=== PATIENT | male | born 1955 | race Caucasian/White ===

== ENCOUNTER 2017-10-03 19:02 | Emergency (ER) | payer MEDICAID ==
[~2017-10-03] VITALS: Ht 177.8 cm; Wt 113.4 kg
[~2017-10-03 19:02] MED LIST: ANUSOL-HC25 MG RC; CLARITIN10 MG PO; CLINDAMYCIN HC300 MG PO; EPI EZ PEN1 MG/ML IM; HYDROCODONE BIT1 T11 PO; KEFLEX500 MG PO; MEDROL DOSEPAK4 MG PO; METFORMIN500 MG PO; MOTRIN800 MG PO; PREVACID SOLUTA30 MG PO; PRILOSEC40 M1 PO; SEPTRA DS 800 M1 TAB PO; VICODIN 5/500 505 MG PO; VICODIN 500 MG-1 TAB PO
[2017-10-03] MEDS ORDERED: DEBROX15 ML OT (19:43)
== END 2017-10-03 19:40 | disposition home or self-care (01) ==
LOC: ED 19:02
DX: H61.23 Impacted cerumen, bilateral (principal); F17.200 Nicotine dependence, unspecified, uncomplicated; F10.10 Alcohol abuse, uncomplicated; Z79.899 Other long term (current) drug therapy

== ENCOUNTER 2019-07-17 21:48 | Emergency (ER) | payer MEDICAID ==
--- NOTE | ~2019-07-17 | EKG ---
[place], [place] ELECTROCARDIOGRAM REPORT NAME: JACKY GRIMM UNIT #: [id number] ROOM: DOCTOR: EPIPHANY DRAFT REPORT BIRTHDATE: [birth year] [facility] Test Date: 2019-07-17 Test Time: 22:55:30 Pat Name: JACKY GRIMM Department: ER Room: 1 Gender: M Set Up And Lay Out Inspector: Jeannette Delaney : 1955 Requested By: ROLAND HANSEN Order Number: [id number] Reading MD: Tank Roe MD Measurements Intervals [place] Rate: 57 P: OK: QRS: 22 QRSD: 88 T: 40 QT: 418 QTc: 407 Interpretive Statements Atrial fibrillation with slow ventricular response Electronically Signed On 07-18-2019 8:05:45 PDT by Tank Roe MD CM:EKGRPT:ELECTROCARDIOGRAM REPORT [id number] ROLAND HANSEN MD EPIPHANY DRAFT REPORT ROLAND HANSEN MD
[~2019-07-17 21:48] MED LIST changes: +DEBROX15 ML OT
[2019-07-17] MEDS ORDERED: LEVEMIR FL100 UNIT/1 SQ (22:06)
[2019-07-17] MEDS ORDERED: VITAMIN D32000 UNI1 PO (22:06)
[2019-07-17] MEDS ORDERED: HUMULIN R100 UNIT/1 IV (22:07)
[2019-07-17] MEDS ORDERED: LISINOPRIL5 MG PO (22:07)
[2019-07-17] MEDS ORDERED: METOPROLOL TART50 M1 PO (22:07)
[2019-07-17] MEDS ORDERED: OMEPRAZOLE D/R20 MG PO (22:07)
[2019-07-17] MEDS ORDERED: ATORVASTATIN CA10 M1 PO (22:08)
[2019-07-17] MEDS ORDERED: GEMFIBROZIL600 MG PO (22:08)
[2019-07-17 22:34] LABS: BASO # 0.1 10*3/uL (0.0-0.1); BASO % 0.6 % (0.0-1.0); EOS # 0.1 10*3/uL (0.0-0.4); EOS % 0.9 % (1.0-4.0); HEMATOCRIT 30.7 % (42.0-52.0); HEMOGLOBIN 9.5 g/dl (14.0-18.0); LYMPH # 3.1 10*3/uL (1.3-4.4); LYMPH % 29.6 % (27.0-41.0); MEAN CELL VOLUME 82.5 fl (80.0-94.0); MEAN CORPUSCULAR HGB 25.5 pg (27.0-31.0); MEAN CORPUSCULAR HGB CONC 30.9 g/dl (33.0-37.0); MEAN PLATELET VOLUME 9.8 fl (9.6-12.3); MONO % 9.1 % (3.0-9.0); NEUT # 6.3 10*3/uL (2.3-7.9); NEUT % 59.3 % (47.0-73.0); PLATELET COUNT AUTOMATED 331 10*3/uL (130-400); RED BLOOD COUNT 3.72 10*6/uL (4.50-5.90); RED CELL DISTRI WIDTH 13.7 % (0-14.5); WHITE BLOOD COUNT 10.6 10*3/uL (4.8-10.8)
[2019-07-17 22:45] LABS: ACT PARTIAL THROMBO TIME 25.1 SECONDS (20.0-32.1)
[2019-07-17 22:51] LABS: ALBUMIN 3.4 gm/dl (3.1-4.5); ALKALINE PHOSPHATASE 108 U/L (45-117); BUN 23 mg/dl (7-24); CHLORIDE 101 mmol/L (98-107); CREATININE 1.34 mg/dL (0.70-1.30); POTASSIUM 4.4 mmol/L (3.5-5.1); SGOT/AST 12 IU/L (3-35); SGPT/ALT 15 U/L (12-78); SODIUM 131 mmol/L (136-145); TOTAL PROTEIN 8.3 gm/dL (6.4-8.2)
[2019-07-17 22:55] LABS: ACETAMINOPHEN (TYLENOL) > 5.0 ug/ml (10-30); TROPONIN I < 0.015 ng/ml (<0.045)
[2019-07-18 01:25] LABS: URINE AMPHETAMINES < 1000 (1000ng/ml); URINE BARBITURATES < 200 (200ng/ml); URINE BENZODIAZEPINES < 200 (200ng/ml); URINE CANNABINOIDS (THC) < 50 (50ng/ml); URINE COCAINE < 300 (300ng/ml); URINE METHADONE < 300 (300ng/ml); URINE OPIATES < 300 (300ng/ml)
[2019-07-18 01:26] LABS: URINE PHENCYCLIDINE < 25 (25ng/ml)
== END 2019-07-18 02:41 | disposition left against medical advice (07) ==
LOC: ED 21:48
PROVIDERS: Emergency Medicine Emergency Medical Services
DX: R29.810 Facial weakness (principal); R20.0 Anesthesia of skin; R53.1 Weakness; R26.89 Other abnormalities of gait and mobility; D64.9 Anemia, unspecified; F10.920 Alcohol use, unspecified with intoxication, uncomplicated; I10 Essential (primary) hypertension; E11.40 Type 2 diabetes mellitus with diabetic neuropathy, unspecified; Z79.899 Other long term (current) drug therapy; Z79.4 Long term (current) use of insulin

== ENCOUNTER 2019-08-18 11:47 | Inpatient (IN) | payer MEDICAID ==
[~2019-08-18] VITALS: Ht 177.8 cm; Wt 103.9 kg
[2019-08-18] VITALS (8 sets, daily range): BP systolic 137–189; BP diastolic 59–89
[~2019-08-18 11:47] MED LIST changes: +ATORVASTATIN CA10 M1 PO; +GEMFIBROZIL600 MG PO; +HUMULIN R100 UNIT/1 IV; +LEVEMIR FL100 UNIT/1 SQ; +LISINOPRIL5 MG PO; +METOPROLOL TART50 M1 PO; +OMEPRAZOLE D/R20 MG PO; +VITAMIN D32000 UNI1 PO
[2019-08-18 12:14] LABS: BASO % 0.4 % (0.0-1.0); EOS % 0.4 % (1.0-4.0); HEMATOCRIT 24.3 % (42.0-52.0); HEMOGLOBIN 7.3 g/dl (14.0-18.0); LYMPH # 1.6 10*3/uL (1.3-4.4); LYMPH % 22.3 % (27.0-41.0); MEAN CELL VOLUME 77.6 fl (80.0-94.0); MEAN CORPUSCULAR HGB 23.3 pg (27.0-31.0); MEAN PLATELET VOLUME 9.8 fl (9.6-12.3); MONO # 0.7 10*3/uL (0.1-1.0); MONO % 9.2 % (3.0-9.0); NEUT # 4.8 10*3/uL (2.3-7.9); NEUT % 67.1 % (47.0-73.0); NUCLEATED RED BLOOD CELL 0.4 % (0.0-0.0); PLATELET COUNT AUTOMATED 351 10*3/uL (130-400); RED BLOOD COUNT 3.13 10*6/uL (4.50-5.90); RED CELL DISTRI WIDTH 14.6 % (0-14.5); WHITE BLOOD COUNT 7.1 10*3/uL (4.8-10.8)
[2019-08-18 12:35] LABS: ACT PARTIAL THROMBO TIME 25.1 SECONDS (20.0-32.1); INTERNATIONAL NORM RATIO 1.1 (2.0-3.5)
[2019-08-18 12:40] LABS: ALBUMIN 3.2 gm/dl (3.1-4.5); BUN 21 mg/dl (7-24); CHLORIDE 100 mmol/L (98-107); CREATININE 1.32 mg/dL (0.70-1.30); POTASSIUM 4.9 mmol/L (3.5-5.1); SGOT/AST 22 IU/L (3-35); SGPT/ALT 22 U/L (12-78); SODIUM 129 mmol/L (136-145)
[2019-08-18 12:44] LABS: ALKALINE PHOSPHATASE 109 U/L (45-117); TROPONIN I < 0.015 ng/ml (<0.045)
--- NOTE | 2019-08-18 13:00 | NUR ---
ALL TESTING RETURNED. AWAITING PLAN OF CARE DECSION. PROVIDER AWARE.
--- NOTE | 2019-08-18 17:03 | NUR ---
CALLED DR. COLUNGA ANSWERING SERVICE LEFT MESSAGE ON MACHINE REGARDING CONSULT AND NUMBER TO CALL US BACK.
--- NOTE | 2019-08-18 17:20 | NUR ---
A 64, admitted to 5E, under the services of JODIE Ryan DO with a diagnosis of SYMPTOMATIC ANEMIA. Chief complaint is SHORTNESS OF BREATH,CHEST PAIN. Patient arrived via bed from ER. Monitor applied. Initial assessment completed. Vital signs taken and recorded. JODIE RYAN DO notified of admission to the unit. Orders received. See assessment for past medical history, medications and allergies. Patient and/or family oriented to unit. [address] visitation policy reviewed. Clothing/patient valuable form completed. RUBY MALDONADO R
--- NOTE | 2019-08-18 18:30 | NUR ---
DR. MUNIZ CALLED AWARE OF CONSULT. DR. COLUNGA WILL SEE TOMORROW.
--- NOTE | 2019-08-18 18:59 | NUR ---
CALLED DR. SMITH ANSWERING SERVICE THEY WILL NOTIFY HIM.
--- NOTE | 2019-08-18 19:00 | NUR ---
Pt instructed on use of flutter valve. Encouraged self use.
--- NOTE | 2019-08-18 19:13 | NUR ---
PT RESTING IN BED. OXYGEN IN USE. SOB WITH EXERTION. BLOOD STARTED. VSS. CALL LIGHT IN REACH.
--- NOTE | 2019-08-18 19:40 | NUR ---
CALLED DR. HANSON LEFT MESSAGE TO CALL ABOUT CONSULT
--- NOTE | 2019-08-18 19:50 | NUR ---
DR. HANSON CALLED AWARE OF CONSULT. H&H IN AM. NO NEED FOR H&H 4 HOURS AFTER 1ST UNIT PER DR. HANSON. CALL HIM WITH AM H&H.
--- NOTE | 2019-08-18 20:02 | NUR ---
CALLED DR. HAMILTON AWARE DR. HANSON WANTS H&H IN AM AND NOT IN [address] HAMILTON DRAW H&H 4 HOURS AFTER TRANSFUSION IS DONE AND CALL DR. HAMILTON WITH RESULTS.
[2019-08-19] VITALS (12 sets, daily range): BP systolic 135–197; BP diastolic 62–100
[2019-08-19 02:50] LABS: HEMATOCRIT 25.7 % (42.0-52.0); HEMOGLOBIN 7.7 g/dl (14.0-18.0)
[2019-08-19 08:25] LABS: HEMATOCRIT 27.8 % (42.0-52.0); HEMOGLOBIN 8.5 g/dl (14.0-18.0); LYMPH # 0.8 10*3/uL (1.3-4.4); LYMPH % 11.4 % (27.0-41.0); MEAN CELL VOLUME 80.1 fl (80.0-94.0); MEAN CORPUSCULAR HGB 24.5 pg (27.0-31.0); MEAN CORPUSCULAR HGB CONC 30.6 g/dl (33.0-37.0); MEAN PLATELET VOLUME 10.2 fl (9.6-12.3); MONO # 0.4 10*3/uL (0.1-1.0); MONO % 5.5 % (3.0-9.0); NEUT # 5.7 10*3/uL (2.3-7.9); NEUT % 82.5 % (47.0-73.0); NUCLEATED RED BLOOD CELL 0.6 % (0.0-0.0); PLATELET COUNT AUTOMATED 319 10*3/uL (130-400); RED BLOOD COUNT 3.47 10*6/uL (4.50-5.90); RED CELL DISTRI WIDTH 14.8 % (0-14.5); WHITE BLOOD COUNT 6.9 10*3/uL (4.8-10.8)
[2019-08-19 08:54] LABS: BUN 26 mg/dl (7-24); CHLORIDE 102 mmol/L (98-107); CHOLESTEROL 98 mg/dL (<200); CREATININE 1.38 mg/dL (0.70-1.30); FREE T4 0.92 ng/dl (0.76-1.46); HDL CHOLESTEROL 35 mg/dl (40-60); LDL CHOLESTEROL 52 mg/dL (9-159); PHOSPHOROUS 2.8 mg/dL (2.5-4.9); SODIUM 134 mmol/L (136-145); TRIGLYCERIDES 54 mg/dl (<150); VLDL CHOLESTEROL 11 mg/dL (6-40)
[2019-08-19 09:01] LABS: THYROID STIM HORMONE (HS) 0.852 uIU/ml (0.358-4.75)
--- NOTE | 2019-08-19 10:55 | NUR ---
PHYSICAL THERAPY Physical therapy evaluation complete, 5E. Moderate complexity PT evaluation per chart review and evaluation (54159). PT to progress transfers, gait, and balance per POC. Recommend home with home health services at discharge. Thank you. Chani Mars,PT,DPT.
--- NOTE | 2019-08-19 10:55 | NUR ---
Occupational therapy orders received and OT evaluation and POC completed in full on floor five. Patient precautions include fall risk, decreased dynamic balance, and impulsivity. Per OT eval and POC, OT recommends patient d/c home with home health OT, PT, and SN. Patient would benefit from continued OT treatment to maximize independence and safety with ADLs abd functional mobility/transfers. Thank you for the referral. Elisa Bland, OTR/L
--- NOTE | 2019-08-19 11:16 | NUR ---
JACKY GRIMM [id number] Please refer to the physician's history and physical for past medical history, comorbid conditions, and allergies. Diagnosis: SYMPTOMATIC ANEMIA Frank Score: 20,LOW OR NO RISK WOUND DESCRIPTIONS: Patient states that he burned his right forearm approximately 10 days ago when taking food out of his oven. Patient states that he was putting antibiotic ointment on the area for approximately 3 days and then let it "scab over." Patient denied pain to this area at time of assessment. Surface the patient is resting on: Isoflex SKIN PREVENTION RECOMMENDATION: 1. Pressure redistribution support surface as appropriate 2. Elevate heels 3. Remove boots/TEDS every shift and reapply 4. Head of bed 30 degrees as tolerated 5. Assess nutrition and hydration 6. Manage moisture 7. Avoid the use of containment devices while in bed 8. Use absorptive products on surfaces limit layers of linens on bed 9. Turn and reposition every 1-2 hours in bed and every 1 hour in chair as tolerated 10. Weight shifts every 15 minutes while up in chair 11. Offloading with pillows or device to keep heels elevated off bed 12. Monitor skin at least every shift 13. Inspect under medical devices twice a day WOUND TREATMENT RECOMMENDATIONS: Leave open to air per patient request.
--- NOTE | 2019-08-19 14:15 | NUR ---
Manager Pacu in to talk to patient. Patient states lives at HOME with GRANDSON. There are FEW steps in the home. Physician: BRIDGET Pharmacy: [facility] Home health services: NONE Patient's level of ADLs: MINIMAL ASSIST Patient has working utilities: YES DME: NONE Follow-up physician's appointment after d/c: WILL BE MADE BY HOSPITALIST NURSE DIRECTOR Does patient want to access PORTAL?: NO Discharge plan PT LIVES AT HOME WITH GRANDSON AND IS INDEPENDENT IN HIS CARE. . DENIES THAT HE WILL HAVE ANY NEEDS ON DISCHARGE. WILL CONTINUE TO FOLLOW. PT STATES HE WILL HAVE A RIDE HOME. MILADIS CALDERON
[2019-08-20] VITALS: BP 131/59
[2019-08-20 06:49] LABS: BASO % 0.1 % (0.0-1.0); HEMATOCRIT 28.2 % (42.0-52.0); HEMOGLOBIN 8.5 g/dl (14.0-18.0); LYMPH # 2.1 10*3/uL (1.3-4.4); MEAN CELL VOLUME 81.3 fl (80.0-94.0); MEAN CORPUSCULAR HGB 24.5 pg (27.0-31.0); MEAN CORPUSCULAR HGB CONC 30.1 g/dl (33.0-37.0); MEAN PLATELET VOLUME 10.5 fl (9.6-12.3); MONO # 1.2 10*3/uL (0.1-1.0); MONO % 9.3 % (3.0-9.0); NEUT # 9.2 10*3/uL (2.3-7.9); NEUT % 73.1 % (47.0-73.0); NUCLEATED RED BLOOD CELL 0.1 10*3/uL (0.0-0.0); NUCLEATED RED BLOOD CELL 0.4 % (0.0-0.0); PLATELET COUNT AUTOMATED 321 10*3/uL (130-400); RED BLOOD COUNT 3.47 10*6/uL (4.50-5.90); RED CELL DISTRI WIDTH 15.3 % (0-14.5); WHITE BLOOD COUNT 12.6 10*3/uL (4.8-10.8)
[2019-08-20 07:00] LABS: BUN 28 mg/dl (7-24); CHLORIDE 103 mmol/L (98-107); POTASSIUM 4.6 mmol/L (3.5-5.1); SODIUM 137 mmol/L (136-145)
[2019-08-20 08:00] VITALS: BP 126/70
--- NOTE | 2019-08-20 10:24 | NUR ---
OT NOTE Attempted to see pt this A.M. for OT session and upon arrival pt was eating his breakfast. Will check back at a later time/date and continue with POC as able. ANAY Bae/Alphonse
[2019-08-20 12:00] VITALS: BP 137/79
--- NOTE | 2019-08-20 14:25 | NUR ---
OT NOTE Pt was seen this P.M. 1:1 for 19 minute OT session. Upon arrival pt was sitting upright in the recliner. Pt identified by name and and had no complaints at this time. Pt completed functional mobility around the room with CGA for safety. Challenged pt's dynamic standing tolerance needed for increased I in self care tasks and functional transfers. Pt was able to tolerate aprox 6 minutes at a time before sitting due to fatigue. Then challenged pt's dynamic standing balance needed for increased I and enhanced safety, pt was able to maintain G- standing balance. Pt was left sitting upright in the bedside chair with call light in hand, tray table in place, and phone in reach. Continue with rec D/C plan to home with home health. ANAY Oliver/Alphonse
--- NOTE | 2019-08-20 15:00 | NUR ---
PT STATES HE IS OK WITH HAVING HOME HEALTH. FIRST CHOICE WAS [facility] BUT THEY DO NOT ACCEPT HIS INSURANCE. SECOND CHOICE IS [facility]. WILL SEND REFERRAL WHEN ORDER IS IN.
[2019-08-20 16:00] VITALS: BP 158/66
--- NOTE | 2019-08-20 16:06 | NUR ---
PHYSICAL THERAPY Patient presented to therapy in seated position in bedside chair wit hreport of no pain and feeling better. Patient says his breathing is better. Patient was identifed by name and on wristband. Patient gives informed consent for treatment. Patient performed sit to stand transfer with SBA. Patient performed gait with no assistive device and Close Supervision for 250' x 1 with no LOB or other difficulty. Patient had no spO2 during this ambulation. Patient tolerated ambulation very well and no significant SOB. Patient was left in seated position wit hcall light within reach in bedside chair. Patient ambulating within room throughout day on his own. Patient was 1:1 with this BUYER TOBACCO HEAD for 16 minutes total. SULAIMAN WALKER BUYER TOBACCO HEAD
--- NOTE | 2019-08-20 18:52 | NUR ---
PREO- LABS ORDERED FOR AM, PER DR HANSON PROTOCOL
[2019-08-20 20:00] VITALS: BP 153/77
--- NOTE | 2019-08-20 20:00 | NUR ---
PATIENT HAS FINISHED HIS MIRALAX PREP, STATES ITS WORKING. HAS NO COMPLAINTS AT THIS TIME. WILL MONTIOR PROGRESSION OF PREP.
[2019-08-21] VITALS (9 sets, daily range): BP systolic 115–173; BP diastolic 61–90
--- NOTE | 2019-08-21 01:05 | NUR ---
24 HR chart check completed.
[2019-08-21 06:49] LABS: EOS % 0.1 % (1.0-4.0); HEMATOCRIT 30.6 % (42.0-52.0); HEMOGLOBIN 9.3 g/dl (14.0-18.0); LYMPH # 3.1 10*3/uL (1.3-4.4); LYMPH % 25.5 % (27.0-41.0); MEAN CELL VOLUME 81.2 fl (80.0-94.0); MEAN CORPUSCULAR HGB 24.7 pg (27.0-31.0); MEAN CORPUSCULAR HGB CONC 30.4 g/dl (33.0-37.0); MEAN PLATELET VOLUME 9.7 fl (9.6-12.3); MONO # 1.1 10*3/uL (0.1-1.0); MONO % 9.2 % (3.0-9.0); NEUT # 7.9 10*3/uL (2.3-7.9); NEUT % 64.9 % (47.0-73.0); NUCLEATED RED BLOOD CELL 0.2 % (0.0-0.0); PLATELET COUNT AUTOMATED 341 10*3/uL (130-400); RED BLOOD COUNT 3.77 10*6/uL (4.50-5.90); RED CELL DISTRI WIDTH 15.3 % (0-14.5); WHITE BLOOD COUNT 12.1 10*3/uL (4.8-10.8)
[2019-08-21 07:08] LABS: BUN 24 mg/dl (7-24); CHLORIDE 103 mmol/L (98-107); CREATININE 1.11 mg/dL (0.70-1.30); POTASSIUM 4.1 mmol/L (3.5-5.1); SODIUM 137 mmol/L (136-145)
[2019-08-21 07:33] LABS: INTERNATIONAL NORM RATIO 1.1 (2.0-3.5)
--- NOTE | 2019-08-21 11:55 | NUR ---
Pt was seen for 23 minutes for OT beginning with fxl mobility throughout bedroom area & hallway with distant supervision due to hx of falls. Pt reached into high & low surfaces to retrieve objects with good balance noted. Tolerated 15-20 minutes of activity without fatiguing. Call light within reach. Continue with OT POC. Jewels NOVOA
--- NOTE | 2019-08-21 12:19 | NUR ---
PHYSICAL THERAPY CO-SIGN I approve of the Physical Therapy notes written above. PRAVEENA KNOWLES PT, DPT
--- NOTE | 2019-08-21 15:51 | NUR ---
REFERRAL FAXED TO [facility]. [facility] DOSE NOT TAKE PT INSURANCE.
--- NOTE | 2019-08-21 23:53 | NUR ---
24 HR chart check completed.
[2019-08-22] VITALS: BP 146/77
[2019-08-22 08:00] VITALS: BP 153/93
[2019-08-22] MEDS ORDERED: FENOFIBRATE48 M1 PO (11:38)
[2019-08-22] MEDS ORDERED: FEROSUL325 MG PO (11:38)
[2019-08-22] MEDS ORDERED: LISINOPRIL10 M1 PO (11:38)
--- NOTE | 2019-08-22 12:10 | NUR ---
Discharge instructions reviewed with patient. Patient receptive and verbalizes understanding. Follow-up care TO BE arranged BY PATIENT. Written instructions given to patient. X2 IV CATH REMOVED, MULT AU MATIC OPERATOR ACCOUNTED FOR. PATIENT DID NOT WANT INSULIN COVERAGE PRIOR TO LEAVING. THEODORE VENTURA
--- NOTE | 2019-08-24 08:10 | NUR ---
OCCUPATIONAL THERAPY CO-SIGN I approve of the Occupational Therapy notes written above. ROSELINE OSUNA OTR/Alphonse
== END 2019-08-22 12:10 | disposition home health service (06) | DRG 811 ==
LOC: ED 11:47 → EDHOLD 16:14 → 5E 16:14
PROVIDERS: Emergency Medicine; Internal Medicine; Internal Medicine Gastroenterology; ADMIT Internal Medicine
DX: D64.9 Anemia, unspecified (principal); J96.01 Acute respiratory failure with hypoxia; E87.1 Hypo-osmolality and hyponatremia; E44.0 Moderate protein-calorie malnutrition; R55 Syncope and collapse; R29.6 Repeated falls; E11.65 Type 2 diabetes mellitus with hyperglycemia; E78.5 Hyperlipidemia, unspecified; K21.9 Gastro-esophageal reflux disease without esophagitis; E55.9 Vitamin D deficiency, unspecified; K29.70 Gastritis, unspecified, without bleeding; E66.9 Obesity, unspecified; I48.91 Unspecified atrial fibrillation; N18.3 Chronic kidney disease, stage 3 (moderate); K44.9 Diaphragmatic hernia without obstruction or gangrene; I12.9 Hypertensive chronic kidney disease with stage 1 through stage 4 chronic kidney disease, or unspecified chronic kidney disease; F17.200 Nicotine dependence, unspecified, uncomplicated; K22.719 Barrett's esophagus with dysplasia, unspecified; E11.22 Type 2 diabetes mellitus with diabetic chronic kidney disease; E78.2 Mixed hyperlipidemia; Z80.8 Family history of malignant neoplasm of other organs or systems; Z79.4 Long term (current) use of insulin; Z79.01 Long term (current) use of anticoagulants; Z71.6 Tobacco abuse counseling; Z86.73 Personal history of transient ischemic attack (TIA), and cerebral infarction without residual deficits; Z68.32 Body mass index [BMI] 32.0-32.9, adult